=== PATIENT | male | born 1940 | race African-American/Black ===

== ENCOUNTER 2017-04-02 11:57 | Inpatient (IN) | payer OTHER ==
[~2017-04-02] VITALS: Ht 180.3 cm; Wt 61.4 kg
[2017-04-02] MEDS ORDERED: METHYLPREDNISOLONE 125 MG INJ IV STA (11:59)
[2017-04-02] MEDS ORDERED: ALBUTEROL 0.5% (NEB) 2.5 MG/0.5 ML AMP INH STA (11:59)
[2017-04-02] MEDS ORDERED: IPRATROPIUM (NEB) 0.5 MG/2.5 ML AMP INH STA (11:59)
[2017-04-02] MEDS ORDERED: MAGNESIUM SULFATE 2 GM/50 ML 50 ML IVPB STA (11:59)
[2017-04-02] MEDS ORDERED: MAGNESIUM SULFATE 2 GM/50 ML 50 ML ONE (12:01)
[2017-04-02] MEDS ORDERED: METHYLPREDNISOLONE 125 MG INJ ONE (12:01)
[2017-04-02 12:09] VITALS: Ht 180.3 cm; Wt 61.4 kg
[2017-04-02 12:16] LABS: BASOPHILS % 0.4 % (0.0-2.0); EOSINOPHILS # 0.2 10^3/ul (0.0-0.5); EOSINOPHILS % 1.8 % (0.0-7.0); HEMATOCRIT 42.9 % (42.0-52.0); HEMOGLOBIN 13.3 g/dl (14.0-18.0); LYMPHOCYTES # 1.1 10^3/ul (0.8-2.9); LYMPHOCYTES % 12.9 % (15.0-51.0); MEAN CORPUSCULAR VOLUME 106.5 fl (82.0-101.0); MONOCYTE # 0.9 10^3/ul (0.3-0.9); MONOCYTES % 10.9 % (0.0-11.0); NEUTROPHILS % 73.8 % (39.0-77.0); PLATELET COUNT 257 10^3/UL (140-415); RED BLOOD COUNT 4.03 10^6/ul (4.70-6.10); WHITE BLOOD COUNT 8.1 10^3/ul (4.8-10.8)
[2017-04-02 12:35] LABS: ALANINE AMINOTRANSFERASE 39 IU/L (13-69); ALBUMIN 3.5 g/dl (3.3-4.9); ALBUMIN/GLOBULIN RATIO 0.92; ALKALINE PHOSPHATASE 88 IU/L (42-121); ASPARTATE AMINO TRANSFERASE 24 IU/L (15-46); BILIRUBIN,INDIRECT 0.4 mg/dl (0-1.1); BILIRUBIN,TOTAL 0.4 mg/dl (0.2-1.3); BLOOD UREA NITROGEN 19 mg/dl (7-20); CALCIUM 9.5 mg/dl (8.4-10.2); CHLORIDE 91 mmol/L (97-110); CREATININE 0.66 mg/dl (0.61-1.24); GLUCOSE 154 mg/dl (70-220); POTASSIUM 4.6 mmol/L (3.5-5.1); SODIUM 142 mmol/L (135-144); TOTAL PROTEIN 7.3 g/dl (6.1-8.1)
[2017-04-02 12:44] LABS: ANION GAP 11 (8-16); CARBON DIOXIDE 45 mmol/L (21-31); INR 0.95; PROTIME 12.7 Sec (12.2-14.2)
[2017-04-02 12:45] LABS: PARTIAL THROMBOPLASTIN TIME 34.4 Sec (25.0-35.0)
[2017-04-02 12:48] LABS: TROPONIN-I < 0.012 ng/ml (0.00-0.12)
[2017-04-02] MEDS ORDERED: ALBU2.5V3 NEB (13:15)
[2017-04-02] MEDS ORDERED: ADV25050 INHALATION (13:16)
[2017-04-02] MEDS ORDERED: ALBU8.5H3 INH (13:16)
[2017-04-02] MEDS ORDERED: SOD CHLORIDE 0.9% 1,000 ML IV STA (13:46)
--- NOTE | 2017-04-02 13:47 | RADRPT ---
PROCEDURE: XR Chest. CLINICAL INDICATION: Shortness of breath TECHNIQUE: Single AP view of the chest was obtained COMPARISON: None FINDINGS: Heart normal in size. Hyperexpanded airways. Tortuous aorta. No acute osseous abnormality. RPTAT: AA IMPRESSION: Hyperexpanded airways may reflect chronic obstructive disease or asthma. Fidel Valadez Physician Date Time Electronically viewed and signed by Fidel Valadez, Physician on 04/02/2017 13:47 [place]/
[2017-04-02] MEDS ORDERED: ACETAMINOPHEN 325 MG TAB PO PRN (14:00)
[2017-04-02] MEDS ORDERED: ONDANSETRON 4 MG INJ IV PRN ×2 (14:00→14:30)
[2017-04-02] MEDS ORDERED: LEVOFLOXACIN 750MG/D5W (PMX) 150 ML IVPB ONE (14:00)
--- NOTE | 2017-04-02 14:01 | ERD ---
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 He states that he quit smoking only 1 week ago. The patient describes shortness of breath. He was satting in the mid 80s per rescue. The patient was given a CPAP with improved oxygenation. The patient denies any chest pain, lower extremity swelling, no pleuritic pain. Symptoms have been progressive over the past 24-48 hours. ROS All systems reviewed and are negative except as per history of present illness. Medications Home Meds Reported Medications Albuterol Sulfate* (Proair HFA*) 8.5 Gm Hfa.aer.ad, 2 PUFF INH Q4H Y for WHEEZING AND SOB, #1 INHALER 04/02/17 Salmeterol Xinaf/Fluticasone* (Advair*) 250-50 Diskus Inhaler, 1 INH INHALATION BID, #1 INHALER 04/02/17 Albuterol Sulfate* (Albuterol Sulfate* Neb) 0.083%-3 Ml Neb, 2.5 MG NEB Q3H Y for WHEEZING AND SOB, #30 VIAL 04/02/17 Allergies Allergies: Coded Allergies: No Known Allergy (Unverified , 04/02/17) PMhx/Soc History of Surgery: Yes (back surgery) Anesthesia Reaction: No Hx Neurological Disorder: No Hx Respiratory Disorders: Yes (copd) Hx Cardiac Disorders: Yes (htn) Hx Psychiatric Problems: Yes (anxiety) Hx Miscellaneous Medical Probl: No Hx Alcohol Use: Yes Hx Substance Use: No Hx Tobacco Use: Yes (quit 03/21/2017) Smoking Status: Former smoker FmHx Family History: No diabetes Physical Exam Vitals Vital Signs Date Time Temp Pulse Resp B/P Pulse Ox O2 Delivery O2 Flow Rate FiO2 04/02/17 12:13 106 100 50 04/02/17 12:13 106 36 04/02/17 12:09 97.4 101 22 160/75 100 Physical Exam General: Cachectic elderly male, increased work of breathing Head: Normocephalic, atraumatic. Eyes: Pupils equally reactive, EOM intact ENT: Moist mucous membranes Neck: Supple, no lymphadenopathy Respiratory: Decreased aeration bilaterally with increased work of breathing, wheezing Cardiovascular: Slight tachycardia, no murmurs, rubs, or gallops Abdominal: Soft, non-tender, non-distended, no peritoneal signs : Deferred MSK: No edema, no unilateral swelling, 5/5 strength Neurologic: Alert and oriented, moving all extremities, normal speech, no focal weakness, no cerebellar signs Skin: No rash Psych: Normal mood Result Diagram: 04/02/17 1205 04/02/17 1205 Results 24 hrs Laboratory Tests Test 04/02/17 12:05 White Blood Count 8.110^3/ul Red Blood Count 4.0310^6/ul Hemoglobin 13.3g/dl Hematocrit 42.9% Mean Corpuscular Volume 106.5fl Mean Corpuscular Hemoglobin 33.0pg Mean Corpuscular Hemoglobin Concent 31.0g/dl Red Cell Distribution Width 13.0% Platelet Count 34377^3/UL Mean Platelet Volume 9.0fl Neutrophils % 73.8% Lymphocytes % 12.9% Monocytes % 10.9% Eosinophils % 1.8% Basophils % 0.4% Nucleated Red Blood Cells % 0.0/100WBC Neutrophils # 6.010^3/ul Lymphocytes # 1.110^3/ul Monocytes # 0.910^3/ul Eosinophils # 0.210^3/ul Basophils # 0.010^3/ul Nucleated Red Blood Cells # 0.010^3/ul Prothrombin Time 12.7Sec Prothrombin Time Ratio 1.0 INR International Normalized Ratio 0.95 Activated Partial Thromboplast Time 34.4Sec Sodium Level 142mmol/L Potassium Level 4.6mmol/L Chloride Level 91mmol/L Carbon Dioxide Level 45mmol/L Anion Gap 11 Blood Urea Nitrogen 19mg/dl Creatinine 0.66mg/dl Glucose Level 154mg/dl Lactic Acid Level 2.3mmol/L Calcium Level 9.5mg/dl Total Bilirubin 0.4mg/dl Direct Bilirubin 0.00mg/dl Indirect Bilirubin 0.4mg/dl Aspartate Amino Transf (AST/SGOT) 24IU/L Alanine Aminotransferase (ALT/SGPT) 39IU/L Alkaline Phosphatase 88IU/L Troponin I < 0.012ng/ml Total Protein 7.3g/dl Albumin 3.5g/dl Globulin 3.80g/dl Albumin/Globulin Ratio 0.92 Current Medications Medications (Trade) Dose Ordered Sig/Mejia Route PRN Reason Start Time Stop Time Status Last Admin Dose Admin Albuterol (Proventil 0.5% (Neb)) 15 mg ONCE STAT INH 04/02/17 11:59 04/02/17 12:01 DC 04/02/17 12:12 Ipratropium [facility] (Atrovent 0.02% (Neb)) 2 mg ONCE STAT INH 04/02/17 11:59 04/02/17 12:01 DC 04/02/17 12:12 Methylprednisolone Sodium Succinate 125 mg 125 mg ONCE STAT IV 04/02/17 11:59 04/02/17 12:01 DC 04/02/17 12:03 Magnesium Sulfate 50 ml @ 25 mls/hr ONCE STAT IVPB 04/02/17 11:59 04/02/17 13:58 04/02/17 12:03 Sodium Chloride 1,000 ml @ 1,000 mls/hr Q1H STAT IV 04/02/17 13:46 04/02/17 14:45 Levofloxacin/ Dextrose (Levaquin 750 Mg/ D5W 150 ml (Pmx)) 150 ml @ 100 mls/hr ONCE ONCE IVPB 04/02/17 14:00 04/02/17 15:29 Ondansetron HCl (Zofran Inj) 4 mg BRIDGE ORDER PRN IV NAUSEA AND/OR VOMITING 04/02/17 14:00 04/03/17 13:59 Acetaminophen (Tylenol Tab) 650 mg ER BRIDGE PRN PO MILD PAIN/FEVER 04/02/17 14:00 04/03/17 13:59 Procedures/MDM EKG, MONITORS, & DIAGNOSTIC IMAGING: EKG: I reviewed and interpreted a 12-lead EKG. Rhythm: Sinus tachycardia Ectopy: None Intervals: No abnormalities ST segments: No elevations or depressions T waves: No contiguous inversions Chest x-ray: I reviewed and interpreted a 1 view of the chest Mediastinum: No enlargement Cardiac silhouette: No cardiomegaly Airspace: Hyperinflation, otherwise clear lung singh bilaterally without evidence of pneumothorax Bones: No evidence of fracture LAB INTERPRETATION: Negative troponin, no significant leukocytosis MEDICAL DECISION MAKING: The patient presents with evidence of acute respiratory failure secondary to likely COPD with exacerbation. The patient will need BiPAP. No signs or symptoms concerning for cardiogenic etiology, pulmonary embolism or pneumothorax. Very low clinical concern for infectious or pneumonia but culture monitoring would be reasonable. ER COURSE: The patient has Sirs though this is likely secondary to COPD with exacerbation. No focal source at this time. The patient's lactic acid is slightly elevated but there is no evidence or source of infection. This is not consistent with a diagnosis of sepsis. The patient was given hour-long breathing treatment with a dramatic improvement of his aeration and oxygen saturation. Vital signs have normalized. The patient is now discontinued off of BiPAP. The patient was given magnesium, Solu-Medrol. He was also given Levaquin for treatment of COPD exacerbation. Again this is not for treatment of pneumonia and the patient does not have a source of infection therefore this is not consistent with sepsis. He does not require a full 30 cc/kg bolus of saline and the patient was given 1 L of fluid and I would like to avoid volume overload. Given the patient's original respiratory distress and hypoxia inpatient hospitalization is appropriate. The lactic acid elevation is likely secondary to the patient's increased work of breathing secondary to COPD exacerbation rather than sepsis and hypoperfusion. I kept the patient and/or family informed of laboratory and diagnostic imaging results throughout the emergency room course. DISPOSITION PLAN: Medical surgical admission for management of COPD with exacerbation. Frequent nebs. CONSULTATION: Accepting care team and consultations: I discussed the current laboratory data, diagnostic imaging and emergency care provided. Admitting team: Dr. Stoll Admitting team indication: Insurance directed Critical Care Note: Total time: 30 minutes Indication/Organ System Threat: Acute respiratory failure secondary to COPD exacerbation I spent the above amount of critical care time with the patient, not including billable procedures. This included chart review, consultations, repeat bedside evaluations, and titration of appropriate medications to prevent cardiopulmonary or respiratory collapse. Departure Diagnosis: Primary Impression: COPD with exacerbation Additional Impressions: SIRS (systemic inflammatory response syndrome) Lactic acidosis Acute respiratory failure Respiratory failure complication: hypoxia Qualified Code: J96.01 - Acute respiratory failure with hypoxia Condition: Stable TIKA MANLEY MD Apr 02, 2017 14:01
[2017-04-02 14:03] VITALS: TEMP 98
[2017-04-02] MEDS ORDERED: DOCUSATE SODIUM 100 MG CAP PO PRN (14:30)
[2017-04-02] MEDS ORDERED: LORAZEPAM 2 MG INJ IV PRN (14:30)
[2017-04-02] MEDS ORDERED: NACL 0.9% 3 ML SYG IV SCH (14:30)
[2017-04-02] MEDS ORDERED: NITROGLYCERIN (SL) 0.4 MG TAB SL PRN (14:30)
[2017-04-02] MEDS ORDERED: NA PHOSPHATE/BIPHOS 133 ML ENEMA PR PRN (14:30)
[2017-04-02] MEDS ORDERED: MAGNESIUM HYDROXIDE 30ML CUP PO PRN (14:30)
[2017-04-02] MEDS ORDERED: morphine 2 MG INJ IV PRN (14:30)
[2017-04-02] MEDS ORDERED: HYDROCODONE/APAP (5/325) TAB PO PRN (14:30)
[2017-04-02] MEDS ORDERED: hydrALAzine 20 MG INJ IV PRN (14:30)
--- NOTE | 2017-04-02 15:30 | HP ---
DATE OF ADMISSION: 04/02/2017 CHIEF COMPLAINT: This is a 76-year-old male with chief complaint of shortness of breath. HISTORY OF PRESENT ILLNESS: A 76-year-old male, past medical history of positive smoking history, IV drug abuse, COPD, uses home oxygen, prior upper respiratory infections. He has been having shortness of breath for the last three to four days. He does volunteer that earlier this month he was using alcohol and cocaine, both on 03/09/2017 and 03/11/2017. After he received his high from those, he started having shortness of breath symptoms for the last few days. Also, some subjective fevers and chills. No diarrhea or constipation. No upper or lower GI bleeding. No nausea or vomiting. No chest pain. No headaches or loss of consciousness as well. He has been taking his regular COPD medications, which have not relieved the symptoms. Denies any cough. When he came in today, he was found with a slightly elevated lactic acid of 2.3 and required BiPAP in the ER. His shortness of breath symptoms are better now. He has ever been intubated, but he has had multiple prior hospitalizations for COPD exacerbation in the past. PAST MEDICAL HISTORY: As stated above. ALLERGIES: NO KNOWN DRUG ALLERGIES. MEDICATIONS: Home medications: 1. Albuterol nebulizer inhaled q.3 hours p.r.n. 2. ProAir HFA 2 puffs inhaled q.4h p.r.n. 3. Advair 250/50 inhaled b.i.d. PAST SURGICAL HISTORY: None. FAMILY HISTORY: Noncontributory. SOCIAL HISTORY: Positive alcohol use. Positive IV drug abuse., cocaine and smokes one pack cigarettes a day for the last 50 years. PHYSICAL EXAMINATION: VITAL SIGNS: Today vital signs: T-max 97.4, pulse 101 to 106, respirations 20 to 36, blood pressure 116/75, satting 100 percent on FiO2 50 percent. GENERAL: Patient lying in bed, answers questions appropriately. Appears cachectic but alert. HEENT: Pupils equal, round, react to light. Extraocular muscles intact. NECK: Supple. No thyromegaly. LUNGS: Positive expiratory wheezes and prolonged expiratory sounds bilaterally, mainly at the bases. CARDIOVASCULAR: S1, S2 heard. No rubs, gallops. ABDOMEN: Soft, nontender, nondistended. Normal bowel sounds. No rebound or guarding. MUSCULOSKELETAL: No lower extremity bilaterally. NEUROLOGIC: No focal deficits. LABORATORY DATA: CBC is normal. The lactic acid was 2.3 initially, now down to 1.8 cm. The comprehensive metabolic panel is normal except CO2 is high at 45. Troponin is negative. Chest x-ray was performed that shows hyperexpanded airways reflecting chronic obstructive disease. ASSESSMENT AND PLAN: 76-year-old male, coming in with signs of chronic obstructive pulmonary disease exacerbation. 1. Shortness of breath. Chronic obstructive pulmonary disease. Admit the patient. Check TSH, A1c, lipid panel: Breathing treatments q.4 hours around the clock. IV steroids as well as IV antibiotics. Consider PT and OT consults as well. If symptoms worsen, consider pulmonary consult. 2. History of intravenous drug abuse. Counseled on cessation. 3. Smoking history. Again, the patient said his last cigarette was one week ago, but did have a 50-pack smoking history. I put him on nicotine patch as well. 4. Gastrointestinal prophylaxis with proton pump inhibitor. Dictated By: Lucian Watts MD /anabel/dilshad /Document#: [id number]
[2017-04-02 16:08] VITALS: BP 154/68; PULSE 99; RESP 22
[2017-04-02] MEDS: SOD CHLORIDE 0.45% 1,000 ML IV SCH (16:39)
[2017-04-02] MEDS: METHYLPREDNISOLONE 125 MG INJ IV SCH (17:24)
[2017-04-02] MEDS: ALBUTEROL/IPRATROPIUM (NEB) 3 ML AMP HHN SCH ×2 (17:39→20:47)
[2017-04-02] MEDS: NICOTINE (21 MG/24 HR) PATCH TRANSDERM SCH (18:02)
[2017-04-02 20:00] VITALS: BP 148/67; RESP 19
[2017-04-02] MEDS: HEPARIN 5,000 UNIT/0.5 ML VIAL SC SCH (21:03)
[2017-04-02] MEDS: SALMETEROL/FLUTICASONE 250/50 INHA INH SCH (22:08)
[2017-04-03] MEDS: METHYLPREDNISOLONE 125 MG INJ IV SCH ×4 (00:42→18:58)
[2017-04-03 02:00] VITALS: BP 118/50; RESP 19
[2017-04-03] MEDS: ALBUTEROL/IPRATROPIUM (NEB) 3 ML AMP HHN SCH ×6 (04:31→21:00)
[2017-04-03 05:43] LABS: ABNORMAL IP MESSAGE 1; BASOPHILS % 0.1 % (0.0-2.0); HEMOGLOBIN 11.8 g/dl (14.0-18.0); LYMPHOCYTES # 0.5 10^3/ul (0.8-2.9); LYMPHOCYTES % 5.9 % (15.0-51.0); MEAN CORPUSCULAR HEMOGLOBIN 32.9 pg (29.0-33.0); MEAN CORPUSCULAR HGB CONC 31.9 g/dl (32.0-37.0); MEAN CORPUSCULAR VOLUME 103.1 fl (82.0-101.0); MEAN PLATELET VOLUME 9.5 fl (7.4-10.4); MONOCYTE # 0.1 10^3/ul (0.3-0.9); MONOCYTES % 1.6 % (0.0-11.0); NEUTROPHIL # 8.3 10^3/ul (1.6-7.5); NEUTROPHILS % 91.8 % (39.0-77.0); PLATELET COUNT 255 10^3/UL (140-415); POSITIVE DIFF @See below; RED BLOOD COUNT 3.59 10^6/ul (4.70-6.10); RED CELL DISTRIBUTION WIDTH 12.4 % (11.5-14.5)
[2017-04-03] MEDS: PANTOPRAZOLE (EC) 40 MG TAB PO SCH (05:43)
[2017-04-03] MEDS: SOD CHLORIDE 0.45% 1,000 ML IV SCH ×3 (05:44→22:21)
[2017-04-03 06:01] LABS: CHOL/HDL RATIO 2.3 RATIO
[2017-04-03 06:16] LABS: CREATININE 0.68 mg/dl (0.61-1.24); MAGNESIUM 2.1 mg/dl (1.7-2.5); PHOSPHORUS 3.3 mg/dl (2.5-4.9); POTASSIUM 4.6 mmol/L (3.5-5.1)
[2017-04-03 06:33] LABS: THYROID STIMULATING HORMONE 0.121 MIU/L (0.465-4.680)
[2017-04-03 08:13] VITALS: BP 160/67; RESP 18
[2017-04-03] MEDS: NICOTINE (21 MG/24 HR) PATCH TRANSDERM SCH (10:11)
[2017-04-03] MEDS: SALMETEROL/FLUTICASONE 250/50 INHA INH SCH ×2 (10:11→21:24)
[2017-04-03] MEDS: HEPARIN 5,000 UNIT/0.5 ML VIAL SC SCH ×2 (10:12→21:27)
--- NOTE | 2017-04-03 12:20 | PN ---
Date/Time of Note Date/Time of Note DATE: 04/03/17 TIME: 12:18 Assessment/Plan VTE Prophylaxis VTE Prophylaxis Intervention: heparin Lines/Catheters IV Catheter Type (from [facility], [place]): Sal[place] Lock Urinary Cath still in place: No Assessment/Plan Chief Complaint/Hosp Course S: Patient states breathing symptoms of slightly improved, no acute events overnight. O: VS (see below) PE: GENERAL: Patient lying in bed, answers questions appropriately. Appears cachectic but alert. HEENT: Pupils equal, round, react to light. Extraocular muscles intact. NECK: Supple. No thyromegaly. LUNGS: Still positive expiratory wheezes and prolonged expiratory sounds bilaterally, mainly at the bases. CARDIOVASCULAR: S1, S2 heard. No rubs, gallops. ABDOMEN: Soft, nontender, nondistended. Normal bowel sounds. No rebound or guarding. MUSCULOSKELETAL: No lower extremity bilaterally. NEUROLOGIC: No focal deficits. ASSESSMENT AND PLAN: 76-year-old male, coming in with signs of chronic obstructive pulmonary disease exacerbation. 1. Shortness of breath-secondary to chronic obstructive pulmonary disease exacerbation, slowly improving. -Continue breathing treatments q.4 hours around the clock. IV steroids as well as IV antibiotics, O2 supplementation -Follow-up PT and OT consults as well. - If symptoms worsen, consider pulmonary consult. 2. History of intravenous drug abuse. Counseled on cessation. 3. Smoking history - 50-pack smoking history. - nicotine patch as well. Problems: Exam/Review of Systems Vital Signs Vitals Vital Signs Date Time Temp Pulse Resp B/P Pulse Ox O2 Delivery O2 Flow Rate FiO2 04/03/17 08:13 97.8 88 18 160/67 90 04/03/17 07:56 Nasal Cannula 3.0 04/02/17 12:13 50 Intake and Output 04/02/17 04/02/17 04/03/17 15:00 23:00 07:00 Intake Total 400 ml 1480 ml Output Total 1400 ml Balance 400 ml 80 ml Results Result Diagram: 04/03/17 0427 04/03/17 0427 Results 24 hrs Laboratory Tests Test 04/02/17 13:51 04/02/17 16:26 04/02/17 16:29 04/03/17 04:27 Lactic Acid Level 1.8 1.7 Free Thyroxine 1.35 White Blood Count 9.0 Red Blood Count 3.59 L Hemoglobin 11.8 L Hematocrit 37.0 L Mean Corpuscular Volume 103.1 H Mean Corpuscular Hemoglobin 32.9 Mean Corpuscular Hemoglobin Concent 31.9 L Red Cell Distribution Width 12.4 Platelet Count 255 Mean Platelet Volume 9.5 Neutrophils % 91.8 H Lymphocytes % 5.9 L Monocytes % 1.6 Eosinophils % 0.0 Basophils % 0.1 Nucleated Red Blood Cells % 0.0 Neutrophils # 8.3 H Lymphocytes # 0.5 L Monocytes # 0.1 L Eosinophils # 0.0 Basophils # 0.0 Nucleated Red Blood Cells # 0.0 Sodium Level 138 Potassium Level 4.6 Chloride Level 92 L Carbon Dioxide Level 41 *H Anion Gap 10 Blood Urea Nitrogen 15 Creatinine 0.68 Glucose Level 196 Hemoglobin A1c 5.7 Calcium Level 9.0 Phosphorus Level 3.3 Magnesium Level 2.1 Test 04/03/17 04:28 Triglycerides Level 68 Cholesterol Level 138 LDL Cholesterol, Calculated 65 HDL Cholesterol 59 Cholesterol/HDL Ratio 2.3 Thyroid Stimulating Hormone (TSH) 0.121 L Medications Medications Current Medications Ondansetron HCl (Zofran Inj) 4 mg Q6H PRN IV NAUSEA AND/OR VOMITING; Start at 14:30 Acetaminophen (Tylenol Tab) 650 mg Q6H PRN PO PAIN LEVEL 1-3 OR FEVER; Start 04/02/17 at 14:30 Acetaminophen/ Hydrocodone Bitart ([place] (5/325)) 1 tab Q6H PRN PO MODERATE PAIN LEVEL 4-6; Start 04/02/17 at 14:30 Morphine Sulfate (morphine) 2 mg Q4H PRN IV SEVERE PAIN LEVEL 7-10; Start at 14:30 Docusate Sodium (Colace) 100 mg Q12H PRN PO CONSTIPATION; Start 04/02/17 at 14 :30 Magnesium Hydroxide (Milk Of Mag) 30 ml DAILY PRN PO CONSTIPATION; Start 04/02 at 14:30 Sodium Biphosphate/ Sodium Phosphate (Fleet Enema) 133 ml DAILY PRN [place] CONSTIPATION; Start 04/02/17 at 14:30 Pantoprazole (Protonix Tab) 40 mg DAILY@06 PO Last administered on 04/03/17t 05:43; Admin Dose 40 MG; Start 04/03/17 at 06:00 Heparin Sodium (Porcine) 5000 unit 5,000 unit Q12 SC Last administered on 04/03 10:12; Admin Dose 5,000 UNIT; Start 04/02/17 at 21:00 Sodium Chloride (1/2 NS) 1,000 ml @ 75 mls/hr [id number] IV Last administered on 04/03/17 05:49; Admin Dose 75 MLS/HR; Start 04/02/17 at 14:07 Lorazepam 0.5 mg 0.5 mg Q6H PRN IV ANXIETY Last administered on 04/02/17 19: 44; Admin Dose 0.5 MG; Start 04/02/17 at 14:30 Levofloxacin/ Dextrose (Levaquin 750 Mg/ D5W 150 ml (Pmx)) 150 ml @ 100 mls/hr Q24H IVPB ; Start 04/03/17 at 15:30 Hydralazine HCl (Apresoline) 10 mg Q6H PRN IV ELEVATED BLOOD PRESSURE; Start 04/02/17 at 14:30 Nitroglycerin (Nitroglycerin (Sl Tab) 0.4 Mg) 1 tab Q5M PRN SL ANGINA; Start 04/02/17 at 14:30 Salmeterol Xinafoate/ Fluticasone (Advair 250/50 Diskus) 1 inh BID INH Last administered on 04/03/17 10:11; Admin Dose 1 INH; Start 04/02/17 at 21:00 Methylprednisolone Sodium Succinate (Solu-Medrol) 80 mg Q6 IV Last administered on 04/03/17 05:43; Admin Dose 80 MG; Start 04/02/17 at 18:00 Nicotine (Nicoderm 21 Mg/ 24hr) 1 patch DAILY TRANSDERM Last administered on 10:11; Admin Dose 1 PATCH; Start 04/02/17 at 15:00 FELICIA GARCIA 26, 2017 12:20
[2017-04-03] MEDS ORDERED: LEVOFLOXACIN 750MG/D5W (PMX) 150 ML IVPB SCH (15:30)
[2017-04-03 20:17] VITALS: BP 134/63; RESP 19
[2017-04-04] MEDS: METHYLPREDNISOLONE 125 MG INJ IV SCH ×2 (00:54→05:49)
[2017-04-04] MEDS: ALBUTEROL/IPRATROPIUM (NEB) 3 ML AMP HHN SCH ×6 (01:00→21:03)
[2017-04-04 02:33] VITALS: BP 128/70; RESP 19
[2017-04-04] MEDS: PANTOPRAZOLE (EC) 40 MG TAB PO SCH (05:49)
[2017-04-04 06:40] LABS: BASOPHILS % 0.2 % (0.0-2.0); HEMATOCRIT 38.3 % (42.0-52.0); HEMOGLOBIN 12.5 g/dl (14.0-18.0); LYMPHOCYTES % 4.1 % (15.0-51.0); MEAN CORPUSCULAR HEMOGLOBIN 33.2 pg (29.0-33.0); MEAN CORPUSCULAR HGB CONC 32.6 g/dl (32.0-37.0); MEAN CORPUSCULAR VOLUME 101.6 fl (82.0-101.0); MEAN PLATELET VOLUME 9.6 fl (7.4-10.4); MONOCYTES % 3.8 % (0.0-11.0); NEUTROPHIL # 14.3 10^3/ul (1.6-7.5); NEUTROPHILS % 91.1 % (39.0-77.0); PLATELET COUNT 323 10^3/UL (140-415); RED BLOOD COUNT 3.77 10^6/ul (4.70-6.10); RED CELL DISTRIBUTION WIDTH 12.5 % (11.5-14.5); WHITE BLOOD COUNT 15.6 10^3/ul (4.8-10.8)
[2017-04-04 06:41] LABS: LYMPHOCYTES # 0.6 10^3/ul (0.8-2.9); MONOCYTE # 0.6 10^3/ul (0.3-0.9)
[2017-04-04 07:25] LABS: CALCIUM 9.1 mg/dl (8.4-10.2); CREATININE 0.6 mg/dl (0.61-1.24); POTASSIUM 4.1 mmol/L (3.5-5.1)
[2017-04-04 07:48] VITALS: BP 162/74; RESP 16
[2017-04-04] MEDS: NICOTINE (21 MG/24 HR) PATCH TRANSDERM SCH (09:11)
[2017-04-04] MEDS: HEPARIN 5,000 UNIT/0.5 ML VIAL SC SCH ×2 (09:12→20:11)
--- NOTE | 2017-04-04 09:21 | PN ---
Date/Time of Note Date/Time of Note DATE: 04/04/17 TIME: 09:20 Assessment/Plan VTE Prophylaxis VTE Prophylaxis Intervention: SCD's Lines/Catheters IV Catheter Type (from Nrs): Peripheral IV Urinary Cath still in place: No Assessment/Plan Assessment/Plan 76 yo m with advanced COPD on chronic O2 admitted for acute on chronic respiratory failure from acute on chronic COPD #COPD exacerbation de escalate abx to ZPack change steroids to PO as no evidence IV improves outcomes cont home O2 DISCHARGE PLANNING: PT HOMELESS PT eval to see if pt qualifies for SNF SW already on the case pt already has a PCP general diet dvt prophx Subjective 24 Hr Interval Summary Free Text/Dictation Pt lost his housing a few weeks ago. Was smoking cigarettes daily until that time. Also is on 2LPM home o2 Exam/Review of Systems Vital Signs Vitals Vital Signs Date Time Temp Pulse Resp B/P Pulse Ox O2 Delivery O2 Flow Rate FiO2 04/04/17 08:01 93 2.0 04/04/17 07:55 88 26 Nasal Cannula 04/04/17 07:48 98.3 162/74 04/02/17 12:13 50 Intake and Output 04/03/17 04/03/17 04/04/17 15:00 23:00 07:00 Intake Total 2140 ml 1230 ml Output Total 650 ml 1000 ml Balance 1490 ml 230 ml Exam a little tachypneic no mrg poor air movement no rashes no edema Results Result Diagram: 04/04/17 0524 04/04/1724 Results 24 hrs Laboratory Tests Test 04/04/17 05:24 White Blood Count 15.6 #H Red Blood Count 3.77 L Hemoglobin 12.5 L Hematocrit 38.3 L Mean Corpuscular Volume 101.6 H Mean Corpuscular Hemoglobin 33.2 H Mean Corpuscular Hemoglobin Concent 32.6 Red Cell Distribution Width 12.5 Platelet Count 323 # Mean Platelet Volume 9.6 Neutrophils % 91.1 H Lymphocytes % 4.1 L Monocytes % 3.8 Eosinophils % 0.0 Basophils % 0.2 Nucleated Red Blood Cells % 0.0 Neutrophils # 14.3 H Lymphocytes # 0.6 L Monocytes # 0.6 Eosinophils # 0.0 Basophils # 0.0 Nucleated Red Blood Cells # 0.0 Sodium Level 138 Potassium Level 4.1 Chloride Level 91 L Carbon Dioxide Level 38 H Anion Gap 13 Blood Urea Nitrogen 15 Creatinine 0.60 L Glucose Level 136 # Calcium Level 9.1 Medications Medications Current Medications Ondansetron HCl (Zofran Inj) 4 mg Q6H PRN IV NAUSEA AND/OR VOMITING; Start at 14:30 Acetaminophen (Tylenol Tab) 650 mg Q6H PRN PO PAIN LEVEL 1-3 OR FEVER; Start 04/02/17 at 14:30 Acetaminophen/ Hydrocodone Bitart ([place] (5/325)) 1 tab Q6H PRN PO MODERATE PAIN LEVEL 4-6; Start 04/02/17 at 14:30 Morphine Sulfate (morphine) 2 mg Q4H PRN IV SEVERE PAIN LEVEL 7-10; Start at 14:30 Docusate Sodium (Colace) 100 mg Q12H PRN PO CONSTIPATION; Start 04/02/17 at 14 :30 Magnesium Hydroxide (Milk Of Mag) 30 ml DAILY PRN PO CONSTIPATION; Start 04/02 at 14:30 Sodium Biphosphate/ Sodium Phosphate (Fleet Enema) 133 ml DAILY PRN [place] CONSTIPATION; Start 04/02/17 at 14:30 Pantoprazole (Protonix Tab) 40 mg DAILY@06 PO Last administered on 04/04/17 05:49; Admin Dose 40 MG; Start 04/03/17 at 06:00 Heparin Sodium (Porcine) (Heparin (5000 Units/0.5 ml)) 5,000 unit Q12 SC Last administered on 04/03/17 21:27; Admin Dose 5,000 UNIT; Start 04/02/17 at 21: 00 Hydralazine HCl (Apresoline) 10 mg Q6H PRN IV ELEVATED BLOOD PRESSURE; Start 04/02/17 at 14:30 Nitroglycerin (Nitroglycerin (Sl Tab) 0.4 Mg) 1 tab Q5M PRN SL ANGINA; Start 04/02/17 at 14:30 Salmeterol Xinafoate/ Fluticasone (Advair 250/50 Diskus) 1 inh BID INH Last administered on 04/03/17 21:24; Admin Dose 1 INH; Start 04/02/17 at 21:00 Nicotine (Nicoderm 21 Mg/ 24hr) 1 patch DAILY TRANSDERM Last administered on 10:11; Admin Dose 1 PATCH; Start 04/02/17 at 15:00 Prednisone (Prednisone) 40 mg DAILY PO ; Start 04/05/17 at 09:00; Status UNV Prednisone (Prednisone) 40 mg ONCE ONCE PO ; Start 04/04/17 at 09:30; Stop at 09:31; Status UNV PATTI ZIMMER MD Apr 04, 2017 09:21
[2017-04-04] MEDS ORDERED: AZITHROMYCIN 250 MG TAB PO SCH (09:30)
[2017-04-04] MEDS ORDERED: predniSONE 20 MG TAB PO SCH (09:30)
[2017-04-04] MEDS: SALMETEROL/FLUTICASONE 250/50 INHA INH SCH ×2 (10:16→19:54)
[2017-04-04 15:43] VITALS: BP 157/71; RESP 16
[2017-04-04 20:24] VITALS: BP 146/68; RESP 19
--- NOTE | 2017-04-04 22:01 | RADRPT ---
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 Physician: FELICIA GARCIA Quality: Technically Difficult Study Procedures: Transthoracic echocardiogram with 2D, M-Mode, and Doppler examination. Indications: Shortness of breath. 2D/M Mode Doppler Measurement Value Normal Ranges Measurement Value Normal Ranges AoR Diam MM 3.2 cm AV Peak Keith 1.4 m/sec LVIDd 2D 4.4 3.5 - 5.6 cm AV Peak PG 8.3 mmHg LVIDs 2D 3.0 2.1 - 4.1 cm AI Peak PG 82.6 mmHg LVPWd 2D 1.2 0.6 - 1.1 cm AI Peak Keith 4.5 m/sec IVSd 2D 1.4 0.6 - 1.1 cm AI PHT 453.0 msec EDV 2D 87.6 cm3 LVOT Peak Keith 1.0 m/sec ESV 2D 27.0 cm3 LVOT Peak PG 3.9 mmHg LA Dimen 2D 3.0 2.3 - 4.0 cm Findings Left Ventricle: Normal left ventricular systolic function. Normal left ventricular cavity size. Mild concentric left ventricular hypertrophy. Ejection fraction is visually estimated at 60 %. Tissue Doppler/Mitral Doppler indices are indeterminate in this study due to the presence of aortic insufficiency. Right Ventricle: Normal right ventricular size. Left Atrium: The left atrium is normal in size. Right Atrium: The right atrium is normal in size. Atrial Septum: Normal atrial septum. Ventricular septum: Normal/intact ventricular septum. Mitral Valve: Normal appearance of the mitral valve. Trace mitral regurgitation. Aortic Valve: No hemodynamically significant aortic stenosis by doppler. Aortic sclerosis without stenosis. Trileaflet aortic valve. Mild to moderate aortic valve regurgitation. Tricuspid Valve: Normal appearance and function of the tricuspid valve with trace physiologic regurgitation. Pulmonic Valve: Pulmonic valve not well visualized. Pericardium: Normal pericardium with no significant pericardial effusion. No pleural effusion noted. Aorta: Normal aortic root. IVC: Normal size and normal respiratory collapse consistent with normal right atrial pressure. Pulmonary Artery: Normal pulmonary artery size. Conclusions 1.Normal left ventricular systolic function. Normal left ventricular cavity size. Mild concentric left ventricular hypertrophy. Ejection fraction is visually estimated at 60 %. Tissue Doppler/Mitral Doppler indices are indeterminate in this study due to the presence of aortic insufficiency. 2.Normal appearance of the mitral valve. Trace mitral regurgitation. 3.No hemodynamically significant aortic stenosis by doppler. Aortic sclerosis without stenosis. Trileaflet aortic valve. Mild to moderate aortic valve regurgitation. 4.Normal appearance and function of the tricuspid valve with trace physiologic regurgitation. Electronically Signed By: Dakota Cifuentes 04-Apr-2017 22:00:58 -0800 Patient Name: NADER ARDON Study Date: 03-Apr-2017 [id number]
[2017-04-05] MEDS: ALBUTEROL/IPRATROPIUM (NEB) 3 ML AMP HHN SCH ×6 (01:07→20:30)
[2017-04-05 03:02] VITALS: BP 135/64; RESP 19
[2017-04-05 07:52] VITALS: BP 142/63; RESP 18
[2017-04-05] MEDS: SALMETEROL/FLUTICASONE 250/50 INHA INH SCH ×2 (08:44→21:07)
[2017-04-05] MEDS: NICOTINE (21 MG/24 HR) PATCH TRANSDERM SCH (08:44)
[2017-04-05] MEDS: AZITHROMYCIN 250 MG TAB PO SCH (08:44)
[2017-04-05] MEDS: predniSONE 20 MG TAB PO SCH (08:45)
[2017-04-05] MEDS: HEPARIN 5,000 UNIT/0.5 ML VIAL SC SCH ×2 (08:47→21:12)
[2017-04-05 09:52] LABS: ABNORMAL IP MESSAGE 1; BASOPHILS % 0.1 % (0.0-2.0); HEMOGLOBIN 12.1 g/dl (14.0-18.0); LYMPHOCYTES # 1.4 10^3/ul (0.8-2.9); LYMPHOCYTES % 8.9 % (15.0-51.0); MEAN CORPUSCULAR HGB CONC 32.7 g/dl (32.0-37.0); MEAN CORPUSCULAR VOLUME 100.8 fl (82.0-101.0); MEAN PLATELET VOLUME 9.3 fl (7.4-10.4); MONOCYTE # 1.7 10^3/ul (0.3-0.9); NEUTROPHIL # 12.3 10^3/ul (1.6-7.5); NEUTROPHILS % 79.4 % (39.0-77.0); PLATELET COUNT 298 10^3/UL (140-415); POSITIVE DIFF @See below; RED BLOOD COUNT 3.67 10^6/ul (4.70-6.10); RED CELL DISTRIBUTION WIDTH 12.9 % (11.5-14.5); WHITE BLOOD COUNT 15.5 10^3/ul (4.8-10.8)
[2017-04-05 10:14] LABS: CREATININE 0.57 mg/dl (0.61-1.24); POTASSIUM 4.5 mmol/L (3.5-5.1)
[2017-04-05] MEDS: ACETAMINOPHEN 325 MG TAB PO PRN ×2 (11:18→19:41)
--- NOTE | 2017-04-05 16:16 | PN ---
Date/Time of Note Date/Time of Note DATE: 04/05/17 TIME: 16:14 Assessment/Plan VTE Prophylaxis VTE Prophylaxis Intervention: SCD's Lines/Catheters IV [facility] Saline Lock Urinary Cath still in place: No Assessment/Plan Assessment/Plan 76 yo m with advanced COPD on chronic O2 admitted for acute on chronic respiratory failure from acute on chronic COPD #COPD exacerbation cont ZPack cont PO steroids cont nebs cont home O2 DISCHARGE PLANNING: PT HOMELESS PT eval to see if pt qualifies for SNF SW already on the case and notified about care at previous facility pt already has a PCP general diet dvt prophx Subjective 24 Hr Interval Summary Free Text/Dictation states the last he was staying he wasplaced on hospice without his consent Exam/Review of Systems Vital Signs Vitals Vital Signs Date Time Temp Pulse Resp B/P Pulse Ox O2 Delivery O2 Flow Rate FiO2 04/05/17 13:33 76 30 93 Nasal Cannula 3.0 04/05/17 07:52 97.5 142/63 04/02/17 12:13 50 Intake and Output 04/04/17 04/04/17 04/05/17 14:59 22:59 06:59 Intake Total 180 ml 1040 ml 850 ml Output Total 650 ml 800 ml Balance 180 ml 390 ml 50 ml Exam nad still with poor air movement abd soft no rashes no edema Results Result Diagram: 04/05/1737 04/05/17 0937 Results 24 hrs Laboratory Tests Test 04/05/17 09:37 White Blood Count 15.5 H Red Blood Count 3.67 L Hemoglobin 12.1 L Hematocrit 37.0 L Mean Corpuscular Volume 100.8 Mean Corpuscular Hemoglobin 33.0 Mean Corpuscular Hemoglobin Concent 32.7 Red Cell Distribution Width 12.9 Platelet Count 298 Mean Platelet Volume 9.3 Neutrophils % 79.4 H Lymphocytes % 8.9 L Monocytes % 11.0 Eosinophils % 0.0 Basophils % 0.1 Nucleated Red Blood Cells % 0.0 Neutrophils # 12.3 H Lymphocytes # 1.4 Monocytes # 1.7 H Eosinophils # 0.0 Basophils # 0.0 Nucleated Red Blood Cells # 0.0 Sodium Level 137 Potassium Level 4.5 Chloride Level 94 L Carbon Dioxide Level 40 H Anion Gap 8 Blood Urea Nitrogen 15 Creatinine 0.57 L Glucose Level 146 Calcium Level 9.0 Medications Medications Current Medications Ondansetron HCl (Zofran Inj) 4 mg Q6H PRN IV NAUSEA AND/OR VOMITING; Start at 14:30 Acetaminophen (Tylenol Tab) 650 mg Q6H PRN PO PAIN LEVEL 1-3 OR FEVER Last administered on 04/05/17 11:18; Admin Dose 650 MG; Start 04/02/17 at 14:30 Acetaminophen/ Hydrocodone Bitart ([place] (5/325)) 1 tab Q6H PRN PO MODERATE PAIN LEVEL 4-6 Last administered on 04/04/17 19:54; Admin Dose 1 TAB; Start 04/02/17 at 14:30 Morphine Sulfate (morphine) 2 mg Q4H PRN IV SEVERE PAIN LEVEL 7-10; Start at 14:30 Docusate Sodium (Colace) 100 mg Q12H PRN PO CONSTIPATION; Start 04/02/17 at 14 :30 Magnesium Hydroxide (Milk Of Mag) 30 ml DAILY PRN PO CONSTIPATION; Start 04/02 at 14:30 Sodium Biphosphate/ Sodium Phosphate (Fleet Enema) 133 ml DAILY PRN [place] CONSTIPATION; Start 04/02/17 at 14:30 Heparin Sodium (Porcine) (Heparin (5000 Units/0.5 ml)) 5,000 unit Q12 SC Last administered on 04/05/17 08:47; Admin Dose 5,000 UNIT; Start 04/02/17 at 21: 00 Hydralazine HCl (Apresoline) 10 mg Q6H PRN IV ELEVATED BLOOD PRESSURE; Start 04/02/17 at 14:30 Nitroglycerin (Nitroglycerin (Sl Tab) 0.4 Mg) 1 tab Q5M PRN SL ANGINA; Start 04/02/17 at 14:30 Salmeterol Xinafoate/ Fluticasone (Advair 250/50 Diskus) 1 inh BID INH Last administered on 04/05/17 08:44; Admin Dose 1 INH; Start 04/02/17 at 21:00 Nicotine (Nicoderm 21 Mg/ 24hr) 1 patch DAILY TRANSDERM Last administered on 08:44; Admin Dose 1 PATCH; Start 04/02/17 at 15:00 Prednisone (Prednisone) 40 mg DAILY PO Last administered on 04/05/17 08:45; Admin Dose 40 MG; Start 04/05/17 at 09:00 Azithromycin (Zithromax) 250 mg DAILY PO Last administered on 04/05/17t 08:44 ; Admin Dose 250 MG; Start 04/05/17 at 09:00; Stop 04/09/17 at 08:59 PATTI ZIMMER MD Apr 05, 2017 16:16
[2017-04-05 20:00] VITALS: BP 152/69; RESP 19
[2017-04-06] MEDS: ALBUTEROL/IPRATROPIUM (NEB) 3 ML AMP HHN SCH ×6 (00:04→21:08)
[2017-04-06 02:00] VITALS: BP 145/73; RESP 19
[2017-04-06 05:55] LABS: ABNORMAL IP MESSAGE 1; BASOPHILS % 0.1 % (0.0-2.0); EOSINOPHILS % 0.2 % (0.0-7.0); HEMATOCRIT 33.7 % (42.0-52.0); HEMOGLOBIN 11.3 g/dl (14.0-18.0); LYMPHOCYTES # 1.7 10^3/ul (0.8-2.9); LYMPHOCYTES % 13.4 % (15.0-51.0); MEAN CORPUSCULAR HEMOGLOBIN 33.6 pg (29.0-33.0); MEAN CORPUSCULAR HGB CONC 33.5 g/dl (32.0-37.0); MEAN CORPUSCULAR VOLUME 100.3 fl (82.0-101.0); MEAN PLATELET VOLUME 9.4 fl (7.4-10.4); MONOCYTE # 1.7 10^3/ul (0.3-0.9); MONOCYTES % 13.5 % (0.0-11.0); NEUTROPHIL # 9.2 10^3/ul (1.6-7.5); NEUTROPHILS % 72.3 % (39.0-77.0); PLATELET COUNT 297 10^3/UL (140-415); POSITIVE DIFF @See below; RED BLOOD COUNT 3.36 10^6/ul (4.70-6.10); RED CELL DISTRIBUTION WIDTH 12.7 % (11.5-14.5); WHITE BLOOD COUNT 12.8 10^3/ul (4.8-10.8)
[2017-04-06 06:05] LABS: CALCIUM 8.8 mg/dl (8.4-10.2); CREATININE 0.61 mg/dl (0.61-1.24); POTASSIUM 4.4 mmol/L (3.5-5.1)
[2017-04-06 07:44] VITALS: BP 125/61; RESP 20
[2017-04-06] MEDS: SALMETEROL/FLUTICASONE 250/50 INHA INH SCH ×2 (09:11→21:36)
[2017-04-06] MEDS: AZITHROMYCIN 250 MG TAB PO SCH (09:11)
[2017-04-06] MEDS: NICOTINE (21 MG/24 HR) PATCH TRANSDERM SCH (09:12)
[2017-04-06] MEDS: predniSONE 20 MG TAB PO SCH (09:12)
[2017-04-06] MEDS: HEPARIN 5,000 UNIT/0.5 ML VIAL SC SCH ×2 (09:13→21:37)
--- NOTE | 2017-04-06 15:42 | PN ---
Date/Time of Note Date/Time of Note DATE: 04/06/17 TIME: 15:41 Assessment/Plan VTE Prophylaxis VTE Prophylaxis Intervention: SCD's Lines/Catheters IV Catheter Type (from Nrs): Saline Lock Urinary Cath still in place: No Assessment/Plan Assessment/Plan 76 yo m with advanced COPD on chronic O2 admitted for acute on chronic respiratory failure from acute on chronic COPD #COPD exacerbation cont ZPack cont PO steroids cont nebs cont home O2 DISCHARGE PLANNING: PT HOMELESS Per PT/OT no skilled needs pt already has a PCP general diet dvt prophx Subjective 24 Hr Interval Summary Free Text/Dictation on the phone trying to change his health insurance this AM Exam/Review of Systems Vital Signs Vitals Vital Signs Date Time Temp Pulse Resp B/P Pulse Ox O2 Delivery O2 Flow Rate FiO2 04/06/17 13:33 85 18 93 Nasal Cannula 3.0 04/06/17 07:44 97.3 125/61 04/02/17 12:13 50 Intake and Output 04/05/17 04/05/17 04/06/17 15:00 23:00 07:00 Intake Total 1500 ml 1280 ml Output Total 1350 ml 700 ml Balance 150 ml 580 ml Exam on the phone breath sounds improved no mrg abd soft no rashes Results Result Diagram: 04/06/1718 04/06/1718 Results 24 hrs Laboratory Tests Test 04/06/17 05:18 White Blood Count 12.8 H Red Blood Count 3.36 L Hemoglobin 11.3 L Hematocrit 33.7 L Mean Corpuscular Volume 100.3 Mean Corpuscular Hemoglobin 33.6 H Mean Corpuscular Hemoglobin Concent 33.5 Red Cell Distribution Width 12.7 Platelet Count 297 Mean Platelet Volume 9.4 Neutrophils % 72.3 Lymphocytes % 13.4 L Monocytes % 13.5 H Eosinophils % 0.2 Basophils % 0.1 Nucleated Red Blood Cells % 0.0 Neutrophils # 9.2 H Lymphocytes # 1.7 Monocytes # 1.7 H Eosinophils # 0.0 Basophils # 0.0 Nucleated Red Blood Cells # 0.0 Sodium Level 139 Potassium Level 4.4 Chloride Level 93 L Carbon Dioxide Level 42 *H Anion Gap 8 Blood Urea Nitrogen 14 Creatinine 0.61 Glucose Level 76 # Calcium Level 8.8 Medications Medications Current Medications Ondansetron HCl (Zofran Inj) 4 mg Q6H PRN IV NAUSEA AND/OR VOMITING; Start 11/ 25/17 at 14:30 Acetaminophen (Tylenol Tab) 650 mg Q6H PRN PO PAIN LEVEL 1-3 OR FEVER Last administered on 04/05/17 19:41; Admin Dose 650 MG; Start 04/02/17 at 14:30 Acetaminophen/ Hydrocodone Bitart ([place] (5/325)) 1 tab Q6H PRN PO MODERATE PAIN LEVEL 4-6 Last administered on 04/04/17 19:54; Admin Dose 1 TAB; Start 04/02/17 at 14:30 Morphine Sulfate (morphine) 2 mg Q4H PRN IV SEVERE PAIN LEVEL 7-10; Start at 14:30 Docusate Sodium (Colace) 100 mg Q12H PRN PO CONSTIPATION; Start 04/02/17 at 14 :30 Magnesium Hydroxide (Milk Of Mag) 30 ml DAILY PRN PO CONSTIPATION; Start 04/02 at 14:30 Sodium Biphosphate/ Sodium Phosphate (Fleet Enema) 133 ml DAILY PRN [place] CONSTIPATION; Start 04/02/17 at 14:30 Heparin Sodium (Porcine) (Heparin (5000 Units/0.5 ml)) 5,000 unit Q12 SC Last administered on 04/06/17 09:13; Admin Dose 5,000 UNIT; Start 04/02/17 at 21: 00 Hydralazine HCl (Apresoline) 10 mg Q6H PRN IV ELEVATED BLOOD PRESSURE; Start 04/02/17 at 14:30 Nitroglycerin (Nitroglycerin (Sl Tab) 0.4 Mg) 1 tab Q5M PRN SL ANGINA; Start 04/02/17 at 14:30 Salmeterol Xinafoate/ Fluticasone (Advair 250/50 Diskus) 1 inh BID INH Last administered on 04/06/17 09:11; Admin Dose 1 INH; Start 04/02/17 at 21:00 Nicotine (Nicoderm 21 Mg/ 24hr) 1 patch DAILY TRANSDERM Last administered on 09:12; Admin Dose 1 PATCH; Start 04/02/17 at 15:00 Prednisone (Prednisone) 40 mg DAILY PO Last administered on 04/06/17 09:12; Admin Dose 40 MG; Start 04/05/17 at 09:00 Azithromycin (Zithromax) 250 mg DAILY PO Last administered on 04/06/17 09:11 ; Admin Dose 250 MG; Start 04/05/17 at 09:00; Stop 04/09/17 at 08:59 PATTI ZIMMER MD Apr 06, 2017 15:42
[2017-04-06 19:49] VITALS: BP 145/68; RESP 18
[2017-04-07] MEDS: ALBUTEROL/IPRATROPIUM (NEB) 3 ML AMP HHN SCH ×6 (01:06→21:17)
[2017-04-07 02:58] VITALS: BP 143/65; RESP 20
[2017-04-07 06:26] LABS: BASOPHILS % 0.1 % (0.0-2.0); EOSINOPHILS % 0.2 % (0.0-7.0); HEMATOCRIT 37.1 % (42.0-52.0); LYMPHOCYTES # 1.8 10^3/ul (0.8-2.9); LYMPHOCYTES % 11.7 % (15.0-51.0); MEAN CORPUSCULAR HEMOGLOBIN 32.6 pg (29.0-33.0); MEAN CORPUSCULAR HGB CONC 32.3 g/dl (32.0-37.0); MEAN CORPUSCULAR VOLUME 100.8 fl (82.0-101.0); MEAN PLATELET VOLUME 9.5 fl (7.4-10.4); MONOCYTE # 1.4 10^3/ul (0.3-0.9); MONOCYTES % 9.3 % (0.0-11.0); NEUTROPHIL # 12.1 10^3/ul (1.6-7.5); NEUTROPHILS % 78.1 % (39.0-77.0); PLATELET COUNT 326 10^3/UL (140-415); RED BLOOD COUNT 3.68 10^6/ul (4.70-6.10); RED CELL DISTRIBUTION WIDTH 12.9 % (11.5-14.5); WHITE BLOOD COUNT 15.5 10^3/ul (4.8-10.8)
[2017-04-07 07:00] LABS: CREATININE 0.63 mg/dl (0.61-1.24); POTASSIUM 3.9 mmol/L (3.5-5.1)
[2017-04-07 08:12] VITALS: BP 154/74; RESP 19
[2017-04-07] MEDS: AZITHROMYCIN 250 MG TAB PO SCH (09:43)
[2017-04-07] MEDS: SALMETEROL/FLUTICASONE 250/50 INHA INH SCH ×2 (09:43→21:31)
[2017-04-07] MEDS: predniSONE 20 MG TAB PO SCH (09:43)
[2017-04-07] MEDS: NICOTINE (21 MG/24 HR) PATCH TRANSDERM SCH (09:44)
[2017-04-07] MEDS: HEPARIN 5,000 UNIT/0.5 ML VIAL SC SCH ×2 (09:48→20:57)
--- NOTE | 2017-04-07 13:00 | PN ---
Date/Time of Note Date/Time of Note DATE: 04/07/17 TIME: 12:58 Assessment/Plan VTE Prophylaxis VTE Prophylaxis Intervention: SCD's Lines/Catheters IV Catheter Type (from Nrs): Saline Lock Urinary Cath still in place: No Assessment/Plan Assessment/Plan 76 yo m with advanced COPD on chronic O2 admitted for acute on chronic respiratory failure from acute on chronic COPD #COPD exacerbation cont ZPack cont PO steroids burst cont nebs cont home O2 DISCHARGE PLANNING: PT HOMELESS but requires supplemental O2 at all times 2/2 his advanced COPD. medically stable for discharge when there is a place for him to go pt already has a PCP general diet dvt prophx Subjective 24 Hr Interval Summary Free Text/Dictation Very mad at his IPA Exam/Review of Systems Vital Signs Vitals Vital Signs Date Time Temp Pulse Resp B/P Pulse Ox O2 Delivery O2 Flow Rate FiO2 04/07/17 09:00 Nasal Cannula 4.0 04/07/17 08:36 96 22 97 04/07/17 08:12 97.4 154/74 Intake and Output 04/06/17 04/06/17 04/07/17 15:00 23:00 07:00 Intake Total 1500 ml Output Total 800 ml Balance 700 ml Exam sitting in chair breath sounds unchanged from yesterday no mrg no rashes no edema Results Result Diagram: 04/07/17 0536 04/07/17 0535 Results 24 hrs Laboratory Tests Test 04/07/17 05:35 04/07/17 05:36 Sodium Level 139 Potassium Level 3.9 Chloride Level 94 L Carbon Dioxide Level 40 H Anion Gap 9 Blood Urea Nitrogen 15 Creatinine 0.63 Glucose Level 83 Calcium Level 9.0 White Blood Count 15.5 #H Red Blood Count 3.68 L Hemoglobin 12.0 L Hematocrit 37.1 L Mean Corpuscular Volume 100.8 Mean Corpuscular Hemoglobin 32.6 Mean Corpuscular Hemoglobin Concent 32.3 Red Cell Distribution Width 12.9 Platelet Count 326 Mean Platelet Volume 9.5 Neutrophils % 78.1 H Lymphocytes % 11.7 L Monocytes % 9.3 Eosinophils % 0.2 Basophils % 0.1 Nucleated Red Blood Cells % 0.0 Neutrophils # 12.1 H Lymphocytes # 1.8 Monocytes # 1.4 H Eosinophils # 0.0 Basophils # 0.0 Nucleated Red Blood Cells # 0.0 Medications Medications Current Medications Ondansetron HCl (Zofran Inj) 4 mg Q6H PRN IV NAUSEA AND/OR VOMITING; Start at 14:30 Acetaminophen (Tylenol Tab) 650 mg Q6H PRN PO PAIN LEVEL 1-3 OR FEVER Last administered on 04/05/17 19:41; Admin Dose 650 MG; Start 04/02/17 at 14:30 Acetaminophen/ Hydrocodone Bitart ([place] (5/325)) 1 tab Q6H PRN PO MODERATE PAIN LEVEL 4-6 Last administered on 04/04/17 19:54; Admin Dose 1 TAB; Start 04/02/17 at 14:30 Morphine Sulfate (morphine) 2 mg Q4H PRN IV SEVERE PAIN LEVEL 7-10; Start at 14:30 Docusate Sodium (Colace) 100 mg Q12H PRN PO CONSTIPATION; Start 04/02/17 at 14 :30 Magnesium Hydroxide (Milk Of Mag) 30 ml DAILY PRN PO CONSTIPATION; Start 04/02 at 14:30 Sodium Biphosphate/ Sodium Phosphate (Fleet Enema) 133 ml DAILY PRN [place] CONSTIPATION; Start 04/02/17 at 14:30 Heparin Sodium (Porcine) (Heparin (5000 Units/0.5 ml)) 5,000 unit Q12 SC Last administered on 04/07/17 09:48; Admin Dose 5,000 UNIT; Start 04/02/17 at 21: 00 Hydralazine HCl (Apresoline) 10 mg Q6H PRN IV ELEVATED BLOOD PRESSURE; Start 04/02/17 at 14:30 Nitroglycerin (Nitroglycerin (Sl Tab) 0.4 Mg) 1 tab Q5M PRN SL ANGINA; Start 04/02/17 at 14:30 Salmeterol Xinafoate/ Fluticasone (Advair 250/50 Diskus) 1 inh BID INH Last administered on 04/07/17 09:43; Admin Dose 1 INH; Start 04/02/17 at 21:00 Nicotine (Nicoderm 21 Mg/ 24hr) 1 patch DAILY TRANSDERM Last administered on 09:44; Admin Dose 1 PATCH; Start 04/02/17 at 15:00 Prednisone (Prednisone) 40 mg DAILY PO Last administered on 04/07/17 09:43; Admin Dose 40 MG; Start 04/05/17 at 09:00; Stop 04/09/17 at 08:59 Azithromycin (Zithromax) 250 mg DAILY PO Last administered on 04/07/17t 09:43 ; Admin Dose 250 MG; Start 04/05/17 at 09:00; Stop 04/09/17 at 08:59 PATTI ZIMMER MD Apr 07, 2017 13:00
[2017-04-07 14:00] VITALS: BP 150/69; RESP 19
[2017-04-07 19:21] VITALS: BP 170/78; RESP 22
[2017-04-07] MEDS: ACETAMINOPHEN 325 MG TAB PO PRN (21:31)
[2017-04-08] MEDS: ALBUTEROL/IPRATROPIUM (NEB) 3 ML AMP HHN SCH ×6 (01:23→21:10)
[2017-04-08 02:16] VITALS: BP 141/66; RESP 22
[2017-04-08 06:35] LABS: BASOPHILS % 0.1 % (0.0-2.0); EOSINOPHILS % 0.3 % (0.0-7.0); HEMATOCRIT 35.4 % (42.0-52.0); HEMOGLOBIN 11.5 g/dl (14.0-18.0); LYMPHOCYTES # 1.6 10^3/ul (0.8-2.9); LYMPHOCYTES % 10.9 % (15.0-51.0); MEAN CORPUSCULAR HGB CONC 32.5 g/dl (32.0-37.0); MEAN CORPUSCULAR VOLUME 101.4 fl (82.0-101.0); MEAN PLATELET VOLUME 9.9 fl (7.4-10.4); MONOCYTE # 1.1 10^3/ul (0.3-0.9); MONOCYTES % 7.3 % (0.0-11.0); NEUTROPHIL # 11.7 10^3/ul (1.6-7.5); NEUTROPHILS % 80.7 % (39.0-77.0); PLATELET COUNT 307 10^3/UL (140-415); RED BLOOD COUNT 3.49 10^6/ul (4.70-6.10); RED CELL DISTRIBUTION WIDTH 13.2 % (11.5-14.5); WHITE BLOOD COUNT 14.5 10^3/ul (4.8-10.8)
[2017-04-08 06:39] LABS: CREATININE 0.68 mg/dl (0.61-1.24); POTASSIUM 4.1 mmol/L (3.5-5.1)
[2017-04-08 07:26] VITALS: BP 148/63; RESP 22
[2017-04-08] MEDS: AZITHROMYCIN 250 MG TAB PO SCH (09:46)
[2017-04-08] MEDS: SALMETEROL/FLUTICASONE 250/50 INHA INH SCH ×2 (09:46→21:40)
[2017-04-08] MEDS: predniSONE 20 MG TAB PO SCH (09:46)
[2017-04-08] MEDS: NICOTINE (21 MG/24 HR) PATCH TRANSDERM SCH (09:51)
[2017-04-08] MEDS: HEPARIN 5,000 UNIT/0.5 ML VIAL SC SCH ×2 (09:59→21:42)
--- NOTE | 2017-04-08 13:42 | PN ---
Date/Time of Note Date/Time of Note DATE: 04/08/17 TIME: 13:40 Assessment/Plan VTE Prophylaxis VTE Prophylaxis Intervention: SCD's Lines/Catheters IV Catheter Type (from Nrs): Saline Lock Urinary Cath still in place: No Assessment/Plan Assessment/Plan 76 yo m with advanced COPD on chronic O2 admitted for acute on chronic respiratory failure from acute on chronic COPD #COPD exacerbation cont ZPack cont PO steroids burst cont nebs cont home O2 DISCHARGE PLANNING: PT HOMELESS but requires supplemental O2 at all times 2/2 his advanced COPD. remains medically stable for discharge when there is a place for him to go pt already has a PCP general diet dvt prophx Subjective 24 Hr Interval Summary Free Text/Dictation Pt seen ambulating in the halls with his O2 Exam/Review of Systems Vital Signs Vitals Vital Signs Date Time Temp Pulse Resp B/P Pulse Ox O2 Delivery O2 Flow Rate FiO2 04/08/17 12:54 110 24 91 Nasal Cannula 3.0 04/08/17 07:26 98.0 148/63 04/07/17 21:18 21 Intake and Output 04/07/17 04/07/17 04/08/17 15:00 23:00 07:00 Intake Total 1120 ml 1500 ml Output Total 1400 ml 1800 ml Balance -280 ml -300 ml Exam nad resp unlabored no abd distension no rashes no edema Results Result Diagram: 04/08/17 0504 04/08/17 0504 Results 24 hrs Laboratory Tests Test 04/08/17 05:04 White Blood Count 14.5 H Red Blood Count 3.49 L Hemoglobin 11.5 L Hematocrit 35.4 L Mean Corpuscular Volume 101.4 H Mean Corpuscular Hemoglobin 33.0 Mean Corpuscular Hemoglobin Concent 32.5 Red Cell Distribution Width 13.2 Platelet Count 307 Mean Platelet Volume 9.9 Neutrophils % 80.7 H Lymphocytes % 10.9 L Monocytes % 7.3 Eosinophils % 0.3 Basophils % 0.1 Nucleated Red Blood Cells % 0.0 Neutrophils # 11.7 H Lymphocytes # 1.6 Monocytes # 1.1 H Eosinophils # 0.0 Basophils # 0.0 Nucleated Red Blood Cells # 0.0 Sodium Level 138 Potassium Level 4.1 Chloride Level 94 L Carbon Dioxide Level 37 H Anion Gap 11 Blood Urea Nitrogen 18 Creatinine 0.68 Glucose Level 129 # Calcium Level 9.0 Medications Medications Current Medications Acetaminophen (Tylenol Tab) 650 mg Q6H PRN PO PAIN LEVEL 1-3 OR FEVER Last administered on 04/07/17 21:31; Admin Dose 650 MG; Start 04/02/17 at 14:30 Acetaminophen/ Hydrocodone Bitart ([place] (5/325)) 1 tab Q6H PRN PO MODERATE PAIN LEVEL 4-6 Last administered on 04/04/17 19:54; Admin Dose 1 TAB; Start 04/02/17 at 14:30 Docusate Sodium (Colace) 100 mg Q12H PRN PO CONSTIPATION; Start 04/02/17 at 14 :30 Magnesium Hydroxide (Milk Of Mag) 30 ml DAILY PRN PO CONSTIPATION; Start 04/02 at 14:30 Sodium Biphosphate/ Sodium Phosphate (Fleet Enema) 133 ml DAILY PRN [place] CONSTIPATION; Start 04/02/17 at 14:30 Heparin Sodium (Porcine) (Heparin (5000 Units/0.5 ml)) 5,000 unit Q12 SC Last administered on 04/08/17 09:59; Admin Dose 5,000 UNIT; Start 04/02/17 at 21:00 Nitroglycerin (Nitroglycerin (Sl Tab) 0.4 Mg) 1 tab Q5M PRN SL ANGINA; Start 04/02/17 at 14:30 Salmeterol Xinafoate/ Fluticasone (Advair 250/50 Diskus) 1 inh BID INH Last administered on 04/08/17 09:46; Admin Dose 1 INH; Start 04/02/17 at 21:00 Nicotine (Nicoderm 21 Mg/ 24hr) 1 patch DAILY TRANSDERM Last administered on 09:51; Admin Dose 1 PATCH; Start 04/02/17 at 15:00 Prednisone (Prednisone) 40 mg DAILY PO Last administered on 04/08/17 09:46; Admin Dose 40 MG; Start 04/05/17 at 09:00; Stop 04/09/17 at 08:59 Azithromycin (Zithromax) 250 mg DAILY PO Last administered on 04/08/17 09:46; Admin Dose 250 MG; Start 04/05/17 at 09:00; Stop 04/09/17 at 08:59 PATTI ZIMMER MD Apr 08, 2017 13:42
[2017-04-08 14:53] VITALS: BP 152/69; RESP 22
[2017-04-08 19:45] VITALS: BP 139/67; RESP 22
[2017-04-08 22:05] VITALS: BP 125/57; RESP 22
[2017-04-09] MEDS: ALBUTEROL/IPRATROPIUM (NEB) 3 ML AMP HHN SCH ×6 (01:01→20:13)
[2017-04-09 02:10] VITALS: BP 142/64; RESP 20
[2017-04-09 06:06] LABS: BASOPHILS % 0.1 % (0.0-2.0); EOSINOPHILS % 0.2 % (0.0-7.0); HEMATOCRIT 33.1 % (42.0-52.0); HEMOGLOBIN 10.8 g/dl (14.0-18.0); LYMPHOCYTES # 1.9 10^3/ul (0.8-2.9); LYMPHOCYTES % 9.7 % (15.0-51.0); MEAN CORPUSCULAR HEMOGLOBIN 33.1 pg (29.0-33.0); MEAN CORPUSCULAR HGB CONC 32.6 g/dl (32.0-37.0); MEAN CORPUSCULAR VOLUME 101.5 fl (82.0-101.0); MEAN PLATELET VOLUME 9.5 fl (7.4-10.4); MONOCYTE # 1.4 10^3/ul (0.3-0.9); MONOCYTES % 7.2 % (0.0-11.0); NEUTROPHIL # 16.1 10^3/ul (1.6-7.5); NEUTROPHILS % 82.1 % (39.0-77.0); PLATELET COUNT 308 10^3/UL (140-415); RED BLOOD COUNT 3.26 10^6/ul (4.70-6.10); RED CELL DISTRIBUTION WIDTH 13.6 % (11.5-14.5); WHITE BLOOD COUNT 19.6 10^3/ul (4.8-10.8)
[2017-04-09 06:30] LABS: CALCIUM 8.9 mg/dl (8.4-10.2); CREATININE 0.7 mg/dl (0.61-1.24); POTASSIUM 4.2 mmol/L (3.5-5.1)
[2017-04-09 07:46] VITALS: BP 125/86; RESP 22
[2017-04-09] MEDS: HEPARIN 5,000 UNIT/0.5 ML VIAL SC SCH ×2 (09:00→21:25)
[2017-04-09] MEDS: SALMETEROL/FLUTICASONE 250/50 INHA INH SCH ×2 (09:20→21:30)
[2017-04-09] MEDS: NICOTINE (21 MG/24 HR) PATCH TRANSDERM SCH (09:20)
[2017-04-09] MEDS ORDERED: NICO1PAT6 TRANSDERM (11:06)
[2017-04-09] MEDS ORDERED: ALBU8.5H3 INH (11:08)
[2017-04-09] MEDS ORDERED: ADV25050 INHALATION (11:08)
--- NOTE | 2017-04-09 13:06 | PN ---
Date/Time of Note Date/Time of Note DATE: 04/09/17 TIME: 13:04 Assessment/Plan VTE Prophylaxis VTE Prophylaxis Intervention: SCD's Lines/Catheters IV C[facility]ter Type (from [facility]): Saline Lock Urinary Cath still in place: No Assessment/Plan Assessment/Plan 76 yo m with advanced COPD on chronic O2 admitted for acute on chronic respiratory failure from acute on chronic COPD #COPD exacerbation sp ZPack; sp PO steroids burst cont nebs cont home O2 cont NRT DISCHARGE PLANNING: PT HOMELESS but requires supplemental O2 at all times 2/2 his advanced COPD. remains medically stable for discharge when there is a place for him to go.Pt states he cannot leave until Tuesday bc he needs to go to the bank. CM/SW aware pt already has a PCP general diet dvt prophx Subjective 24 Hr Interval Summary Free Text/Dictation Says he won't be able to get to the [facility] in time to "unfreeze" his account Exam/Review of Systems Vital Signs Vitals Vital Signs Date Time Temp Pulse Resp B/P Pulse Ox O2 Delivery O2 Flow Rate FiO2 04/09/17 12:56 111 22 90 Nasal Cannula 3.0 04/09/17 07:46 98.7 125/86 04/07/17 21:18 21 Intake and Output 04/08/17 04/08/17 04/09/17 15:00 23:00 07:00 Intake Total 1240 ml Output Total 1525 ml Balance -285 ml Exam ambulating in hallways, leaning over the desk resp nonlabored no abd distension no rashes no edema Results Result Diagram: 04/09/17 0512 04/09/17 0512 Results 24 hrs Laboratory Tests Test 04/09/17 05:12 White Blood Count 19.6 #H Red Blood Count 3.26 L Hemoglobin 10.8 L Hematocrit 33.1 L Mean Corpuscular Volume 101.5 H Mean Corpuscular Hemoglobin 33.1 H Mean Corpuscular Hemoglobin Concent 32.6 Red Cell Distribution Width 13.6 Platelet Count 308 Mean Platelet Volume 9.5 Neutrophils % 82.1 H Lymphocytes % 9.7 L Monocytes % 7.2 Eosinophils % 0.2 Basophils % 0.1 Nucleated Red Blood Cells % 0.0 Neutrophils # 16.1 H Lymphocytes # 1.9 Monocytes # 1.4 H Eosinophils # 0.0 Basophils # 0.0 Nucleated Red Blood Cells # 0.0 Sodium Level 137 Potassium Level 4.2 Chloride Level 94 L Carbon Dioxide Level 38 H Anion Gap 9 Blood Urea Nitrogen 19 Creatinine 0.70 Glucose Level 99 Calcium Level 8.9 Medications Medications Current Medications Acetaminophen (Tylenol Tab) 650 mg Q6H PRN PO PAIN LEVEL 1-3 OR FEVER Last administered on 04/07/17 21:31; Admin Dose 650 MG; Start 04/02/17 at 14:30 Acetaminophen/ Hydrocodone Bitart ([place] (5/325)) 1 tab Q6H PRN PO MODERATE PAIN LEVEL 4-6 Last administered on 04/04/17 19:54; Admin Dose 1 TAB; Start 04/02/17 at 14:30 Docusate Sodium (Colace) 100 mg Q12H PRN PO CONSTIPATION; Start 04/02/17 at 14 :30 Magnesium Hydroxide (Milk Of Mag) 30 ml DAILY PRN PO CONSTIPATION; Start 04/02 at 14:30 Heparin Sodium (Porcine) (Heparin (5000 Units/0.5 ml)) 5,000 unit Q12 SC Last administered on 04/08/17 21:42; Admin Dose 5,000 UNIT; Start 04/02/17 at 21:00 Nitroglycerin (Nitroglycerin (Sl Tab) 0.4 Mg) 1 tab Q5M PRN SL ANGINA; Start 04/02/17 at 14:30 Salmeterol Xinafoate/ Fluticasone (Advair 250/50 Diskus) 1 inh BID INH Last administered on 04/09/17 09:20; Admin Dose 1 INH; Start 04/02/17 at 21:00 Nicotine (Nicoderm 21 Mg/ 24hr) 1 patch DAILY TRANSDERM Last administered on 09:20; Admin Dose 1 PATCH; Start 04/02/17 at 15:00 PATTI ZIMMER MD Apr 09, 2017 13:06
[2017-04-09] MEDS: ACETAMINOPHEN 325 MG TAB PO PRN (19:27)
[2017-04-10] MEDS: ALBUTEROL/IPRATROPIUM (NEB) 3 ML AMP HHN SCH ×6 (00:20→21:22)
[2017-04-10 02:00] VITALS: BP 122/65; RESP 19
[2017-04-10 07:58] VITALS: BP 122/57; RESP 18
[2017-04-10] MEDS: SALMETEROL/FLUTICASONE 250/50 INHA INH SCH ×2 (08:55→20:55)
[2017-04-10] MEDS: NICOTINE (21 MG/24 HR) PATCH TRANSDERM SCH (08:55)
[2017-04-10] MEDS: HEPARIN 5,000 UNIT/0.5 ML VIAL SC SCH ×2 (08:58→21:01)
[2017-04-10 10:52] LABS: BASOPHILS % 0.1 % (0.0-2.0); EOSINOPHILS # 0.1 10^3/ul (0.0-0.5); EOSINOPHILS % 0.8 % (0.0-7.0); HEMATOCRIT 35.9 % (42.0-52.0); HEMOGLOBIN 11.4 g/dl (14.0-18.0); LYMPHOCYTES # 1.9 10^3/ul (0.8-2.9); LYMPHOCYTES % 12.9 % (15.0-51.0); MEAN CORPUSCULAR HEMOGLOBIN 32.5 pg (29.0-33.0); MEAN CORPUSCULAR HGB CONC 31.8 g/dl (32.0-37.0); MEAN CORPUSCULAR VOLUME 102.3 fl (82.0-101.0); MEAN PLATELET VOLUME 9.3 fl (7.4-10.4); MONOCYTE # 1.3 10^3/ul (0.3-0.9); MONOCYTES % 9.2 % (0.0-11.0); NEUTROPHIL # 10.9 10^3/ul (1.6-7.5); PLATELET COUNT 356 10^3/UL (140-415); RED BLOOD COUNT 3.51 10^6/ul (4.70-6.10); RED CELL DISTRIBUTION WIDTH 14.2 % (11.5-14.5); WHITE BLOOD COUNT 14.4 10^3/ul (4.8-10.8)
[2017-04-10] MEDS: ACETAMINOPHEN 325 MG TAB PO PRN (10:53)
[2017-04-10 11:17] LABS: CALCIUM 9.1 mg/dl (8.4-10.2); CREATININE 0.67 mg/dl (0.61-1.24); POTASSIUM 4.2 mmol/L (3.5-5.1)
--- NOTE | 2017-04-10 12:45 | PN ---
Date/Time of Note Date/Time of Note DATE: 04/10/17 TIME: 12:40 Assessment/Plan VTE Prophylaxis VTE Prophylaxis Intervention: SCD's Lines/Catheters IV Catheter Type (from Nrs): Saline Lock Urinary Cath still in place: No Assessment/Plan Assessment/Plan 76 yo m with advanced COPD on chronic O2 admitted for acute on chronic respiratory failure from acute on chronic COPD #COPD exacerbation sp ZPack; sp PO steroids burst cont nebs cont home O2 cont NRT DISCHARGE PLANNING: PT HOMELESS but requires supplemental O2 at all times 2/2 his advanced COPD. remains medically stable for discharge when there is a place for him to go.Pt states he cannot leave until Tuesday bc he needs to go to the bank. CM/SW aware pt already has a PCP general diet dvt prophx Subjective 24 Hr Interval Summary Free Text/Dictation seen shouting into the phone this AM. refusing to leave until tomorrow when the bank opens Exam/Review of Systems Vital Signs Vitals Vital Signs Date Time Temp Pulse Resp B/P Pulse Ox O2 Delivery O2 Flow Rate FiO2 04/10/17 09:24 100 24 94 Nasal Cannula 3.0 04/10/17 07:58 98.3 122/57 04/07/17 21:18 21 Intake and Output 04/09/17 04/09/17 04/10/17 15:00 23:00 07:00 Intake Total 700 ml 1260 ml 500 ml Output Total 1000 ml 850 ml Balance -300 ml 410 ml 500 ml Exam hunched over in chair speaking decisively into telephone resp nonlabored no abd distension no rashes no edema Results Result Diagram: 04/10/17 1031 04/10/17 1031 Results 24 hrs Laboratory Tests Test 04/10/17 10:31 White Blood Count 14.4 #H Red Blood Count 3.51 L Hemoglobin 11.4 L Hematocrit 35.9 L Mean Corpuscular Volume 102.3 H Mean Corpuscular Hemoglobin 32.5 Mean Corpuscular Hemoglobin Concent 31.8 L Red Cell Distribution Width 14.2 Platelet Count 356 Mean Platelet Volume 9.3 Neutrophils % 76.0 Lymphocytes % 12.9 L Monocytes % 9.2 Eosinophils % 0.8 Basophils % 0.1 Nucleated Red Blood Cells % 0.0 Neutrophils # 10.9 H Lymphocytes # 1.9 Monocytes # 1.3 H Eosinophils # 0.1 Basophils # 0.0 Nucleated Red Blood Cells # 0.0 Sodium Level 138 Potassium Level 4.2 Chloride Level 94 L Carbon Dioxide Level 37 H Anion Gap 11 Blood Urea Nitrogen 18 Creatinine 0.67 Glucose Level 102 Calcium Level 9.1 Medications Medications Current Medications Acetaminophen (Tylenol Tab) 650 mg Q6H PRN PO PAIN LEVEL 1-3 OR FEVER Last administered on 04/10/17 10:53; Admin Dose 650 MG; Start 04/02/17 at 14:30 Acetaminophen/ Hydrocodone Bitart ([place] (5/325)) 1 tab Q6H PRN PO MODERATE PAIN LEVEL 4-6 Last administered on 04/04/17 19:54; Admin Dose 1 TAB; Start 04/02/17 at 14:30 Docusate Sodium (Colace) 100 mg Q12H PRN PO CONSTIPATION; Start 04/02/17 at 14 :30 Magnesium Hydroxide (Milk Of Mag) 30 ml DAILY PRN PO CONSTIPATION; Start 04/02 at 14:30 Heparin Sodium (Porcine) (Heparin (5000 Units/0.5 ml)) 5,000 unit Q12 SC Last administered on 04/10/17 08:58; Admin Dose 5,000 UNIT; Start 04/02/17 at 21:00 Nitroglycerin (Nitroglycerin (Sl Tab) 0.4 Mg) 1 tab Q5M PRN [place] ANGINA; Start 04/02/17 at 14:30 Salmeterol Xinafoate/ Fluticasone (Advair 250/50 Diskus) 1 inh BID INH Last administered on 04/10/17 08:55; Admin Dose 1 INH; Start 04/02/17 at 21:00 Nicotine (Nicoderm 21 Mg/ 24hr) 1 patch DAILY TRANSDERM Last administered on 08:55; Admin Dose 1 PATCH; Start 04/02/17 at 15:00 PATTI ZIMMER MD Apr 10, 2017 12:44
[2017-04-10 19:44] VITALS: BP 128/62; RESP 18
[2017-04-11] MEDS: ALBUTEROL/IPRATROPIUM (NEB) 3 ML AMP HHN SCH ×5 (00:30→14:11)
[2017-04-11 01:46] VITALS: BP 136/61; RESP 18
[2017-04-11 08:00] VITALS: BP 123/58; RESP 20
[2017-04-11] MEDS: SALMETEROL/FLUTICASONE 250/50 INHA INH SCH (08:51)
[2017-04-11] MEDS: NICOTINE (21 MG/24 HR) PATCH TRANSDERM SCH (08:52)
[2017-04-11] MEDS: HEPARIN 5,000 UNIT/0.5 ML VIAL SC SCH (09:57)
--- NOTE | 2017-04-11 12:13 | PDOCDIS ---
Discharge Instructions CONDITION Patient Condition: Stable HOME CARE INSTRUCTIONS: Diet Instructions: RegularSpecial Diet: CARDIAC ACTIVITY: Activity Restrictions: Slowly Increase Activity Rest between Activity Avoid Heavy Housework Bathing Restrictions: no restrictions FOLLOW UP/APPOINTMENTS Follow-up Plan Please take your medications as prescribed, see your doctor in the clinic in the next 1-3 days. FELICIA GARCIA Apr 11, 2017 12:13
--- NOTE | 2017-04-11 12:16 | DS ---
Date/Time of Note Date/Time of Note DATE: 04/11/17 TIME: 12:13 Discharge Summary Admission/Discharge Info Admit Date/Time Apr 02, 2017 at 14:57 Discharge Date/Time Discharge Diagnosis 1. Shortness of breath-secondary to chronic obstructive pulmonary disease exacerbation, slowly improving. 2. History of intravenous drug abuse. Counseled on cessation. 3. Smoking history - 50-pack smoking history. - nicotine patch, counseled on cessation Patient Condition: Stable Hospital Course 76-year-old male, past medical history of positive smoking history, IV drug abuse, COPD, uses home oxygen, prior upper respiratory infections. He has been having shortness of breath for the last three to four days. He does volunteer that earlier this month he was using alcohol and cocaine, both on 03/09/2017 and 03/11/2017. After he received his high from those, he started having shortness of breath symptoms for the last few days. Also, some subjective fevers and chills. No diarrhea or constipation. No upper or lower GI bleeding. No nausea or vomiting. No chest pain. No headaches or loss of consciousness as well. He has been taking his regular COPD medications, which have not relieved the symptoms. Denies any cough. When he came in today, he was found with a slightly elevated lactic acid of 2.3 and required BiPAP in the ER. His shortness of breath symptoms are better now. He has ever been intubated, but he has had multiple prior hospitalizations for COPD exacerbation in the past. So patient was admitted, placed on breathing treatments, steroids, antibiotics. Over the course of his hospital stay his breathing symptoms slowly improved. He worked with physical therapy and occupational therapy as well. He was counseled on smoking and drug cessation as well. He was able to ambulate, tolerated p.o. diet, required oxygen supplementation given his advanced COPD. This was arranged to be used as an outpatient by the case management team so it has been ordered. Because patient' s symptoms clinically improve his vital signs are stable his labs are stable, he will be discharged today in improved condition, he Lyndon has a primary care doctor he will follow-up with. PT HOMELESS but requires supplemental O2 at all times 2/2 his advanced COPD. See below for full list of discharge medications. Home Meds Active Scripts Albuterol Sulfate* (Proair HFA*) 8.5 Gm Hfa.aer.ad, 2 PUFF INH Q4H Y for WHEEZING AND SOB for 30 Days, #1 INHALER Prov:PATTI ZIMMER MD 04/09/17 Salmeterol Xinaf/Fluticasone* (Advair*) 250-50 Diskus Inhaler, 1 INH INHALATION BID for 30 Days, #1 INHALER Prov:PATTI ZIMMER MD 04/09/17 Nicotine* (Nicotine* Patch) 21 mg/day Patch, 1 PATCH TRANSDERM DAILY for 30 Days , #30 EA Prov:PATTI ZIMMER MD 04/09/17 Reported Medications Albuterol Sulfate* (Albuterol Sulfate* Neb) 0.083%-3 Ml Neb, 2.5 MG NEB Q3H Y for WHEEZING AND SOB, #30 VIAL 04/02/17 Follow-up Plan Please take your medications as prescribed, see your doctor in the clinic in the next 1-3 days. Primary Care Provider Heladio Fernch Time spent on discharge: > 30 minutes FELICIA GARCIA Apr 11, 2017 12:16
== END 2017-04-11 14:24 | disposition home or self-care (01) | DRG 190 ==
LOC: E/R 11:57 → MS1 13:55 → OBSVTOIN 14:57 → MS1 16:10 → UNDOADMOB 16:10
PROVIDERS: ADMIT Internal Medicine; ATTEND Internal Medicine
PROC: 5A09357 Assistance with Respiratory Ventilation, Less than 24 Consecutive Hours, Continuous Positive Airway Pressure (ICD-10-PCS; principal; 2017-04-02)
PROC: 3E0F7GC Introduction of Other Therapeutic Substance into Respiratory Tract, Via Natural or Artificial Opening (ICD-10-PCS; 2017-04-02)
DX: J44.1 Chronic obstructive pulmonary disease with (acute) exacerbation (principal); J96.20 Acute and chronic respiratory failure, unspecified whether with hypoxia or hypercapnia; E87.2 Acidosis; Z99.81 Dependence on supplemental oxygen; Z87.891 Personal history of nicotine dependence; F19.10 Other psychoactive substance abuse, uncomplicated; F14.90 Cocaine use, unspecified, uncomplicated; Z59.0 Homelessness
CPT/HCPCS: 36415; 71010; 80048; 80053; 80061; 83036; 83605; 83735; 84100; 84439; 84443; 84484; 85025; 85610; 85730; 87040; 93005; 93306; 94640; 94644; 94660; 94664; 96374; 96375; 97116; 97162; 97166; 97530; G0378; J1644; J1956; J2060; J2930; J3475; J7030; J7512